=== PATIENT | male | born 1955 | race Caucasian/White ===

== ENCOUNTER → 2020-02-21 | Outpatient (CLI) | payer OTHER ==
--- NOTE | 2020-02-21 14:17 | CT ---
LOW DOSE CT CHEST WITHOUT CONTRAST LUNG CANCER SCREENING HISTORY: PERSONAL HISTORY OF TOBACCO USE. COMPARISON: None. TECHNIQUE: A topogram was acquired for image localization. Low-dose volumetric CT scan of the chest was acquired without intravenous contrast. Thin section axial, sagittal, and coronal images were reconstructed and reviewed. This protocol meets the ACR Lung-RADS low dose lung cancer screening specifications. This exam was performed according to our departmental dose-optimization program, which includes automated exposure control, adjustment of the mA and/or kV according to patient size and/or use of iterative reconstruction technique. FINDINGS: Pulmonary nodules: No pulmonary nodules or masses. The thyroid gland is unremarkable. No axillary adenopathy. Atherosclerotic plaque in the normal caliber thoracic aorta. Dense coronary artery calcifications. No pericardial effusion. No evidence of acute process in the visualized upper abdomen. No mediastinal adenopathy. Emphysema. No pneumothorax. No pleural effusion. No focal consolidation. Accessory fissure on the left. No acute or suspicious osseous abnormality. Scattered degenerative changes present. IMPRESSION: Lung-RADS Category 1: Negative. Recommend continuing annual screening with LDCT in 12 months. No incidental findings of clinical significance. Electronically signed by: Mau Roe MD 02/21/2020 2:16 PM CDT
== END ==
LOC: CT 13:44
PROVIDERS: ATTEND Emergency Medicine
DX: Z87.891 Personal history of nicotine dependence (principal)